=== PATIENT | male | born 1985 | race Caucasian/White ===

== ENCOUNTER 2022-05-09 10:37 | Emergency (ER) | payer BC ==
[~2022-05-09] VITALS: Ht 180.3 cm; Wt 90.9 kg
[2022-05-09 10:41] VITALS: BP 134/82
== END 2022-05-10 07:21 | disposition left against medical advice (07) ==
LOC: EEVIPCON 10:37 → ER 10:37
DX: M79.671 Pain in right foot (principal); Z53.21 Procedure and treatment not carried out due to patient leaving prior to being seen by health care provider
CPT/HCPCS: 73630

== ENCOUNTER 2022-07-11 13:23 | Emergency (ER) | payer BC ==
[~2022-07-11] VITALS: Ht 180.3 cm; Wt 86.0 kg
[2022-07-11 14:08] VITALS: BP 155/85
--- NOTE | 2022-07-11 14:51 | NUR ---
[place] [phone].
== END 2022-07-11 15:18 | disposition home or self-care (01) ==
LOC: ER 13:23
DX: S93.401A Sprain of unspecified ligament of right ankle, initial encounter (principal); M79.671 Pain in right foot; X58.XXXA Exposure to other specified factors, initial encounter; Y93.89 Activity, other specified; Y92.89 Other specified places as the place of occurrence of the external cause; Y99.8 Other external cause status
CPT/HCPCS: 73610; 99283